=== PATIENT | male | born 1950 ===

== ENCOUNTER 2017-07-07 10:28 | Outpatient (CLI) | payer OTHER ==
[~2017-07-07] VITALS: Ht 152.4 cm; Wt 79.8 kg
[~2017-07-07 10:28] MED LIST: ALLEGRA ALLERG180 MG PO; FLONASE16 G1 NS; MUCINEX600 MG PO
== END 2017-07-07 10:45 | disposition home or self-care (01) ==
LOC: OFIC 805 10:28
DX: H69.83 Other specified disorders of Eustachian tube, bilateral (principal); J31.0 Chronic rhinitis; H61.23 Impacted cerumen, bilateral; H93.13 Tinnitus, bilateral